=== PATIENT | male | born 1960 | race African-American/Black ===

== ENCOUNTER 2018-11-08 09:43 | Inpatient (IN) | payer MEDICAID | END 2018-11-13 12:20 | disposition home or self-care (01) | LOC: ER 09:43 → TELE 12:55 → TELE-EAST 21:07 | PROC: 0DJD8ZZ Inspection of Lower Intestinal Tract, Via Natural or Artificial Opening Endoscopic (ICD-10-PCS; principal; 2018-11-12 12:45) | DX: I21.A1 Myocardial infarction type 2 (principal); N18.6 End stage renal disease; I27.20 Pulmonary hypertension, unspecified; I50.43 Acute on chronic combined systolic (congestive) and diastolic (congestive) heart failure; I13.2 Hypertensive heart and chronic kidney disease with heart failure and with stage 5 chronic kidney disease, or end stage renal disease; M41.9 Scoliosis, unspecified; E83.39 Other disorders of phosphorus metabolism; D63.8 Anemia in other chronic diseases classified elsewhere; Z99.2 Dependence on renal dialysis; D63.1 Anemia in chronic kidney disease ==

== ENCOUNTER 2019-07-09 06:08 | Emergency (ER) | payer OTHER, MEDICAID ==
[~2019-07-09] VITALS: Ht 167.6 cm; Wt 85.7 kg
[~2019-07-09 06:08] MED LIST: CLON0.2T PO; HYDR-4833 PO; HYDR50TA15 PO; LISI40TA PO; NIFE60TA59 PO; SEVE800T8 PO; ZOLP10TA6 PO
[2019-07-09 06:49] LABS: Basophils # (auto) 0.1 uL; Eosinophils # (auto) 0.2 uL; Eosinophils % (auto) 2.3 % (0.0-7.0); Hematocrit 37.9 % (41.0-53.0); Lymphocytes # (auto) 1.2 uL; Mean Corpuscular Hemoglobin 31.8 pg (28.0-32.0); Mean Corpuscular Hgb Conc. 34.3 g/dL (32.0-36.0); Mean Corpuscular Volume 92.5 fL (80.0-100.0); Monocytes # (auto) 0.8 uL; Monocytes % (auto) 11.2 % (0.0-12.0); Neutrophils # (auto) 5.3 uL; Neutrophils % (auto) 69.5 % (37.0-80.0); Platelet Count (auto) 299 10^3/uL (140-450); Red Cell Distribution Width 15.7 % (11.8-14.3); White Blood Cell 7.6 10^3/uL (4.4-10.8)
[2019-07-09 07:04] LABS: Albumin 3.9 g/dL (3.4-5.0); Calcium 8.3 mg/dL (8.5-10.1); Potassium 4.6 mmol/L (3.5-5.1)
[2019-07-09 07:06] LABS: Bilirubin, Total 0.4 mg/dL (0.2-1.0); Total Protein 9.1 g/dL (6.4-8.2)
[2019-07-09 11:40] VITALS: BP 147/81
== END 2019-07-09 11:50 | disposition home or self-care (01) ==
LOC: ER 06:08
DX: S43.102A Unspecified dislocation of left acromioclavicular joint, initial encounter (principal); S70.02XA Contusion of left hip, initial encounter; M54.12 Radiculopathy, cervical region; I12.0 Hypertensive chronic kidney disease with stage 5 chronic kidney disease or end stage renal disease; N18.6 End stage renal disease; E78.5 Hyperlipidemia, unspecified; F12.10 Cannabis abuse, uncomplicated; Z99.2 Dependence on renal dialysis; W19.XXXA Unspecified fall, initial encounter; Y93.84 Activity, sleeping; Y92.89 Other specified places as the place of occurrence of the external cause; Y99.8 Other external cause status
CPT/HCPCS: 36415; 72125; 73030; 80053; 85025

== ENCOUNTER → 2020-08-18 | Emergency (ER) | payer MEDICAID ==
[~2020-08-18] VITALS: Ht 167.6 cm; Wt 90.7 kg
[~2020-08-18] MED LIST changes: +LACTULOSE 20Gm/30ML SOLN PO ONE; -LISI40TA PO; +LISI40TA11 PO; +MAGNESIUM CITRATE SOLUTION 300 ML BTL PO ONE; +NIFE1TAB30 PO; -NIFE60TA59 PO
[2020-08-18 12:15] VITALS: BP 156/95
== END | disposition home or self-care (01) ==
LOC: ER 11:41
DX: K59.00 Constipation, unspecified (principal); N28.1 Cyst of kidney, acquired; E11.22 Type 2 diabetes mellitus with diabetic chronic kidney disease; I12.0 Hypertensive chronic kidney disease with stage 5 chronic kidney disease or end stage renal disease; N18.6 End stage renal disease; E78.5 Hyperlipidemia, unspecified
CPT/HCPCS: 74176

== ENCOUNTER 2021-01-13 09:12 | Emergency (ER) | payer MEDICAID ==
[~2021-01-13 09:12] MED LIST changes: -LACTULOSE 20Gm/30ML SOLN PO ONE; -MAGNESIUM CITRATE SOLUTION 300 ML BTL PO ONE
[2021-01-13] MEDS ORDERED: MORPHINE SULFATE 4 MG/ML SYR/VIAL IV ONE (10:00)
[2021-01-13] MEDS ORDERED: SODIUM CHLORIDE 0.9% 1,000 ML IV ONE (10:00)
[2021-01-13] MEDS ORDERED: PROMETHAZINE HCL 25 MG/ML 1ML IV PRN (10:00)
[2021-01-13] MEDS ORDERED: SODIUM CHLORIDE 0.9% 500 ML IVB ONE (10:00)
[2021-01-13 10:06] LABS: Basophils # (auto) 0 10 ^3/uL (0-0.2); Basophils % (auto) 0.4 % (0.0-2.0); Eosinophils # (auto) 0.1 10 ^3/uL (0-0.8); Eosinophils % (auto) 0.5 % (0.0-7.0); Hemoglobin 15.8 g/dL (13.5-17.5); Lymphocytes % (auto) 9.1 % (10.0-50.0); Mean Corpuscular Hemoglobin 29.8 pg (28.0-32.0); Mean Corpuscular Hgb Conc. 34.3 g/dL (32.0-36.0); Mean Corpuscular Volume 86.7 fL (80.0-100.0); Monocytes # (auto) 0.8 10 ^3/uL (0-1.3); Monocytes % (auto) 7.3 % (0.0-12.0); Neutrophils # (auto) 8.7 10 ^3/uL (1.6-8.6); Neutrophils % (auto) 82.7 % (37.0-80.0); Nucleated Red Blood Cells % 0.1 %; Platelet Count (auto) 357 10^3/uL (140-450); Red Cell Distribution Width 15.8 % (11.8-14.3); White Blood Cell 10.5 10^3/uL (4.4-10.8)
[2021-01-13 10:23] LABS: Albumin 3.9 g/dL (3.4-5.0); Anion Gap 9 (5-15); Blood Urea Nitrogen 15 mg/dL (7-18); Carbon Dioxide 22 mmol/L (21-32); Chloride 104 mmol/L (98-107); Glucose 176 mg/dL (74-106); INR 1.1 (0.9-1.15); Lipase 76 U/L (73-393); Magnesium 1.9 mg/dL (1.6-2.6); Partial Thromboplastin Time 31.1 sec (23.0-31.2); Sodium 135 mmol/L (136-145)
[2021-01-13 10:29] LABS: Alanine Aminotransferase 19 U/L (16-61); Alkaline Phosphatase 98 U/L (45-117); Aspartate Aminotransferase 16 U/L (15-37); BUN/Creatinine Ratio 14.9; Bilirubin, Total 0.3 mg/dL (0.2-1.0); GFR African American 97 mL/min; GFR Non-African American 80 mL/min; Total Protein 8.8 g/dL (6.4-8.2)
[2021-01-13 10:54] LABS: Urine Amorphous Crystal FEW /hpf (None Seen); Urine Bacteria MANY /hpf (None Seen); Urine Blood Negative /uL (Negative); Urine Hyaline Cast FEW /lpf (0 - 2); Urine Mucus FEW (None Seen); Urine Specific Gravity 1.021 (1.001-1.035); Urine WBC 48 /hpf (0 - 3)
[2021-01-13] MEDS ORDERED: cefTRIAXone 1GM/50ML D5W 50 ML IV ONE (13:00)
[2021-01-13 14:58] VITALS: BP 132/86
== END 2021-01-13 15:01 | disposition home or self-care (01) ==
LOC: ER 09:12
DX: N39.0 Urinary tract infection, site not specified (principal); E11.65 Type 2 diabetes mellitus with hyperglycemia; E11.22 Type 2 diabetes mellitus with diabetic chronic kidney disease; I12.0 Hypertensive chronic kidney disease with stage 5 chronic kidney disease or end stage renal disease; N18.6 End stage renal disease; Z79.899 Other long term (current) drug therapy
CPT/HCPCS: 36415; 71046; 74177; 80053; 81001; 83690; 83735; 84443; 84484; 85025; 85610; 85730; 93005; 96361; 96365; 96375; 99285; J0696; J2270; J2550; J7030

== ENCOUNTER 2021-04-09 09:28 | Emergency (ER) | payer MEDICAID ==
[~2021-04-09] VITALS: Ht 167.6 cm; Wt 81.6 kg
[2021-04-09 10:24] LABS: Urine Bacteria MANY /hpf (None Seen); Urine Blood 1+ /uL (Negative); Urine Mucus FEW (None Seen); Urine Specific Gravity 1.018 (1.001-1.035); Urine WBC 440 /hpf (0 - 3); Urine WBC Clumps PRESENT /hpf (None Seen)
[2021-04-09 11:15] LABS: Eosinophils # (auto) 0 10 ^3/uL (0-0.8); Eosinophils % (auto) 0.4 % (0.0-7.0); Mean Corpuscular Hgb Conc. 32.5 g/dL (32.0-36.0); Monocytes # (auto) 0.9 10 ^3/uL (0-1.3)
[2021-04-09 11:17] LABS: Basophils # (auto) 0.1 10 ^3/uL (0-0.2); Basophils % (auto) 0.5 % (0.0-2.0); Hematocrit 38.1 % (41.0-53.0); Hemoglobin 12.4 g/dL (13.5-17.5); Lymphocytes % (auto) 8.8 % (10.0-50.0); Mean Corpuscular Volume 77.1 fL (80.0-100.0); Monocytes % (auto) 8.1 % (0.0-12.0); Neutrophils # (auto) 9.3 10 ^3/uL (1.6-8.6); Neutrophils % (auto) 82.2 % (37.0-80.0); Red Blood Cells 4.95 10^6/uL (4.5-5.90); Red Cell Distribution Width 17.1 % (11.8-14.3); White Blood Cell 11.3 10^3/uL (4.4-10.8)
[2021-04-09] MEDS ORDERED: cefTRIAXone W LIDOCAINE 1 GM IM IM ONE (11:30)
[2021-04-09 11:37] LABS: Albumin 3.2 g/dL (3.4-5.0); Anion Gap 5 (5-15); Blood Urea Nitrogen 14 mg/dL (7-18); Calcium 9.9 mg/dL (8.5-10.1); Carbon Dioxide 24 mmol/L (21-32); Chloride 104 mmol/L (98-107); Glucose 229 mg/dL (74-106); Lipase 115 U/L (73-393); Potassium 4.4 mmol/L (3.5-5.1); Sodium 133 mmol/L (136-145)
[2021-04-09 11:42] LABS: Alanine Aminotransferase 15 U/L (16-61); Alkaline Phosphatase 96 U/L (45-117); Aspartate Aminotransferase 15 U/L (15-37); BUN/Creatinine Ratio 11.8; Bilirubin, Total 0.5 mg/dL (0.2-1.0); GFR African American 80 mL/min; GFR Non-African American 67 mL/min; Total Protein 8.8 g/dL (6.4-8.2)
[2021-04-09 11:50] VITALS: BP 133/82
== END 2021-04-09 11:54 | disposition home or self-care (01) ==
LOC: ER 09:28
DX: N39.0 Urinary tract infection, site not specified (principal); F12.10 Cannabis abuse, uncomplicated; I12.0 Hypertensive chronic kidney disease with stage 5 chronic kidney disease or end stage renal disease; E11.22 Type 2 diabetes mellitus with diabetic chronic kidney disease; N18.6 End stage renal disease; Z79.899 Other long term (current) drug therapy; Z94.0 Kidney transplant status
CPT/HCPCS: 36415; 74176; 80053; 81001; 83690; 84484; 85025; J0696

== ENCOUNTER 2021-04-12 00:32 | Inpatient (IN) | payer MEDICAID ==
[~2021-04-12] VITALS: Ht 165.1 cm; Wt 79.1 kg
[2021-04-12 00:53] LABS: Basophils # (auto) 0.1 10 ^3/uL (0-0.2); Eosinophils # (auto) 0.1 10 ^3/uL (0-0.8); Hemoglobin 12.5 g/dL (13.5-17.5); Monocytes # (auto) 1.2 10 ^3/uL (0-1.3); Neutrophils # (auto) 8.4 10 ^3/uL (1.6-8.6)
[2021-04-12 00:55] LABS: Basophils % (auto) 0.8 % (0.0-2.0); Lymphocytes # (auto) 1.9 10 ^3/uL (0.4-5.4); Mean Corpuscular Hemoglobin 25.9 pg (28.0-32.0); Mean Corpuscular Hgb Conc. 33.7 g/dL (32.0-36.0); Mean Corpuscular Volume 76.7 fL (80.0-100.0); Monocytes % (auto) 10.6 % (0.0-12.0); Neutrophils % (auto) 71.6 % (37.0-80.0); Red Blood Cells 4.83 10^6/uL (4.5-5.90); Red Cell Distribution Width 16.5 % (11.8-14.3); White Blood Cell 11.7 10^3/uL (4.4-10.8)
[2021-04-12 01:23] LABS: Albumin 3.3 g/dL (3.4-5.0); Calcium 9.9 mg/dL (8.5-10.1); Potassium 4.3 mmol/L (3.5-5.1)
[2021-04-12 01:26] LABS: Bilirubin, Total 0.3 mg/dL (0.2-1.0); Total Protein 8.9 g/dL (6.4-8.2)
[2021-04-12 04:40] LABS: Urine Amorphous Crystal FEW /hpf (None Seen); Urine Bacteria FEW /hpf (None Seen); Urine Blood Negative /uL (Negative); Urine Specific Gravity 1.016 (1.001-1.035); Urine WBC 6 /hpf (0 - 3)
[2021-04-12] MEDS ORDERED: cefTRIAXone 1GM/50ML D5W 50 ML IV ONE (07:00)
[2021-04-12] MEDS ORDERED: MORPHINE SULFATE INJECTION 2 MG/ML SYRG IV PRN (10:45)
[2021-04-12] MEDS ORDERED: NITROGLYCERIN 0.4 MG SL TAB SL PRN (10:45)
[2021-04-12] MEDS ORDERED: GOLYTELY 4L KIT PO ONE (11:00)
[2021-04-12] MEDS ORDERED: HYDROcodone-ACET 5/325MG TAB PO PRN (13:45)
[2021-04-12] MEDS ORDERED: hydrALAZINE HCL 25 MG TAB PO ONE (14:45)
[2021-04-12] MEDS ORDERED: LISINOPRIL 20 MG TAB PO ONE (14:45)
[2021-04-12] MEDS: MORPHINE SULFATE 4 MG/ML SYR/VIAL IV PRN ×2 (15:39→19:45)
[2021-04-12] MEDS: SEVELAMER 800 MG TAB PO SCH (18:00)
[2021-04-12 18:45] VITALS: BP 142/93
[2021-04-12 19:45] VITALS: BP 142/93
[2021-04-12 22:00] VITALS: BP 169/99
[2021-04-12] MEDS: ZOLPIDEM TARTRATE 5 MG TAB PO SCH (22:00)
[2021-04-12] MEDS: NIFEdipine ER 30 MG TAB PO SCH (22:09)
[2021-04-12] MEDS: hydrALAZINE HCL 25 MG TAB PO SCH (22:09)
[2021-04-13 05:00] VITALS: BP 158/85
[2021-04-13] MEDS: hydrALAZINE HCL 25 MG TAB PO SCH ×3 (05:29→22:00)
[2021-04-13] MEDS: MORPHINE SULFATE 4 MG/ML SYR/VIAL IV PRN ×4 (05:36→22:55)
[2021-04-13 06:34] LABS: Eosinophils # (auto) 0.1 10 ^3/uL (0-0.8); Lymphocytes # (auto) 1.1 10 ^3/uL (0.4-5.4); Mean Corpuscular Hgb Conc. 33.2 g/dL (32.0-36.0); Mean Corpuscular Volume 75.8 fL (80.0-100.0); Monocytes # (auto) 1.1 10 ^3/uL (0-1.3); Red Cell Distribution Width 16.8 % (11.8-14.3); White Blood Cell 11.2 10^3/uL (4.4-10.8)
[2021-04-13 06:36] LABS: Basophils # (auto) 0 10 ^3/uL (0-0.2); Basophils % (auto) 0.4 % (0.0-2.0); Lymphocytes % (auto) 9.6 % (10.0-50.0); Mean Corpuscular Hemoglobin 25.2 pg (28.0-32.0); Monocytes % (auto) 10.1 % (0.0-12.0); Neutrophils # (auto) 8.8 10 ^3/uL (1.6-8.6); Neutrophils % (auto) 78.9 % (37.0-80.0); Nucleated Red Blood Cells % 0.1 %; Red Blood Cells 4.75 10^6/uL (4.5-5.90)
[2021-04-13 06:45] LABS: Albumin 3.1 g/dL (3.4-5.0); Calcium 9.8 mg/dL (8.5-10.1); Potassium 4.3 mmol/L (3.5-5.1)
[2021-04-13 06:50] LABS: BUN/Creatinine Ratio 14.8; Bilirubin, Total 0.5 mg/dL (0.2-1.0); Total Protein 8.2 g/dL (6.4-8.2)
[2021-04-13] MEDS ORDERED: MYCO360T PO (06:50)
[2021-04-13] MEDS ORDERED: NIFE1TAB31 PO (07:05)
[2021-04-13] MEDS ORDERED: FAMO-12 PO (07:05)
[2021-04-13] MEDS ORDERED: MULTTAB75 PO (07:05)
[2021-04-13] MEDS ORDERED: GLIP5TAB12 PO (07:05)
[2021-04-13] MEDS ORDERED: MAGN400T40 PO (07:05)
[2021-04-13] MEDS ORDERED: POT1TAB PO (07:05)
[2021-04-13] MEDS ORDERED: PERCOT PO (07:05)
[2021-04-13] MEDS ORDERED: PRED1PAK8 PO (07:05)
[2021-04-13] MEDS: SEVELAMER 800 MG TAB PO SCH ×2 (08:00→18:00)
[2021-04-13 09:00] VITALS: BP 122/82
[2021-04-13] MEDS: LISINOPRIL 20 MG TAB PO SCH (10:00)
[2021-04-13 13:00] VITALS: BP 111/69
[2021-04-13] MEDS ORDERED: SODIUM CHLORIDE LOCK 10 ML ONE (14:43)
[2021-04-13] MEDS ORDERED: diphenhdrAMINE HCL 50 MG/1 ML VL ONE (14:44)
[2021-04-13] MEDS: fentaNYL CITRATE 100 MCG/2 ML VL ONE ×3 (15:02→15:09)
[2021-04-13] MEDS: MIDAZOLAM HCL 5 MG/ML-1ML VIAL ONE ×3 (15:02→15:09)
[2021-04-13 16:00] VITALS: BP 127/68
[2021-04-13] MEDS ORDERED: OXYCODONE W/ ACETAMINOPHEN 5/325MG TABLET PO SCH (17:30)
[2021-04-13] MEDS ORDERED: TACR5CAP3 PO (18:44)
[2021-04-13] MEDS: MYCOPHENOLATE SODIUM 360 MG PO SCH (21:29)
[2021-04-13] MEDS: MAGNESIUM OXIDE 400 MG TAB PO SCH (21:30)
[2021-04-13] MEDS: predniSONE 5 MG TAB PO SCH (21:30)
[2021-04-13] MEDS: NEUTRA-PHOS TABLET PO SCH (21:31)
[2021-04-13 22:00] VITALS: BP 109/87
[2021-04-13] MEDS: ZOLPIDEM TARTRATE 5 MG TAB PO SCH (22:00)
[2021-04-13] MEDS: NIFEdipine ER 30 MG TAB PO SCH (22:00)
[2021-04-13] MEDS ORDERED: TACROLIMUS 1 MG CAP PO SCH (22:00)
[2021-04-13] MEDS: cloNIDine HCL 0.1 MG TAB PO SCH (22:00)
[2021-04-13] MEDS ORDERED: NIFEdipine ER 30 MG TAB PO SCH (22:00)
[2021-04-14 05:00] VITALS: BP 105/67
[2021-04-14] MEDS: hydrALAZINE HCL 25 MG TAB PO SCH ×3 (05:47→21:33)
[2021-04-14] MEDS: cloNIDine HCL 0.1 MG TAB PO SCH ×3 (05:47→21:33)
[2021-04-14] MEDS: MORPHINE SULFATE 4 MG/ML SYR/VIAL IV PRN ×3 (06:10→23:30)
[2021-04-14] MEDS: MYCOPHENOLATE SODIUM 360 MG PO SCH ×2 (06:13→17:23)
[2021-04-14] MEDS ORDERED: TACROLIMUS 5MG CAPSULE PO SCH (07:00)
[2021-04-14 08:00] VITALS: BP 115/82
[2021-04-14] MEDS ORDERED: cefTRIAXone 1GM/50ML D5W 50 ML IV SCH (09:00)
[2021-04-14] MEDS: predniSONE 5 MG TAB PO SCH ×2 (10:55→21:32)
[2021-04-14] MEDS: SEVELAMER 800 MG TAB PO SCH ×2 (10:55→18:36)
[2021-04-14] MEDS: FAMOTIDINE 20 MG TAB PO SCH (10:56)
[2021-04-14] MEDS: glipiZIDE 5 MG TAB PO SCH (10:56)
[2021-04-14] MEDS: NEUTRA-PHOS TABLET PO SCH ×2 (10:56→21:32)
[2021-04-14] MEDS: MULTIPLE VITAMINS W/ MINERALS TAB PO SCH (10:56)
[2021-04-14] MEDS: MAGNESIUM OXIDE 400 MG TAB PO SCH ×2 (10:56→21:32)
[2021-04-14] MEDS: LISINOPRIL 20 MG TAB PO SCH (10:57)
[2021-04-14 12:00] VITALS: BP 106/67
[2021-04-14 16:00] VITALS: BP 98/50
[2021-04-14] MEDS ORDERED: PATIENTS OWN MEDICATION PO SCH (17:00)
[2021-04-14] MEDS ORDERED: MYCOPHENOLATE SODIUM 360 MG PO SCH (17:00)
[2021-04-14] MEDS: TACROLIMUS 5MG CAPSULE PO SCH (17:23)
[2021-04-14] MEDS: TACROLIMUS 1 MG CAP PO SCH (17:24)
[2021-04-14] MEDS: AMPICILLIN INJ 1 GM in SODIUM CHL 0.9% 50 ML IV SCH ×2 (18:36→23:29)
[2021-04-14] MEDS: NIFEdipine ER 30 MG TAB PO SCH (21:33)
[2021-04-14 22:00] VITALS: BP 104/60
[2021-04-14] MEDS ORDERED: NITROFURANTOIN 100 mg CAP PO SCH (22:00)
[2021-04-14] MEDS: ZOLPIDEM TARTRATE 5 MG TAB PO SCH (22:21)
[2021-04-15 05:00] VITALS: BP 98/69
[2021-04-15] MEDS: hydrALAZINE HCL 25 MG TAB PO SCH ×3 (05:50→22:00)
[2021-04-15] MEDS: cloNIDine HCL 0.1 MG TAB PO SCH ×3 (05:51→22:00)
[2021-04-15] MEDS: AMPICILLIN INJ 1 GM in SODIUM CHL 0.9% 50 ML IV SCH ×3 (05:51→17:28)
[2021-04-15] MEDS: MYCOPHENOLATE SODIUM 360 MG PO SCH ×2 (06:28→17:30)
[2021-04-15] MEDS: TACROLIMUS 5MG CAPSULE PO SCH ×2 (06:28→17:31)
[2021-04-15] MEDS: TACROLIMUS 1 MG CAP PO SCH ×2 (06:28→17:29)
[2021-04-15 09:00] VITALS: BP 106/69
[2021-04-15] MEDS: MORPHINE SULFATE 4 MG/ML SYR/VIAL IV PRN ×3 (09:58→22:29)
[2021-04-15] MEDS: MAGNESIUM OXIDE 400 MG TAB PO SCH ×2 (09:59→21:35)
[2021-04-15] MEDS: predniSONE 5 MG TAB PO SCH ×2 (09:59→21:35)
[2021-04-15] MEDS: FAMOTIDINE 20 MG TAB PO SCH (09:59)
[2021-04-15] MEDS: SEVELAMER 800 MG TAB PO SCH ×2 (09:59→17:30)
[2021-04-15] MEDS: MULTIPLE VITAMINS W/ MINERALS TAB PO SCH (09:59)
[2021-04-15] MEDS: LISINOPRIL 20 MG TAB PO SCH (10:00)
[2021-04-15] MEDS: NEUTRA-PHOS TABLET PO SCH ×2 (11:03→21:36)
[2021-04-15] MEDS: glipiZIDE 5 MG TAB PO SCH (11:04)
[2021-04-15 15:56] VITALS: BP 120/85
[2021-04-15 17:00] VITALS: BP 120/68
[2021-04-15] MEDS: ZOLPIDEM TARTRATE 5 MG TAB PO SCH (21:35)
[2021-04-15] MEDS: DOCUSATE SOD 100 MG CAP PO SCH (21:35)
[2021-04-15] MEDS: NIFEdipine ER 30 MG TAB PO SCH (21:36)
[2021-04-15 21:57] VITALS: BP 140/101
[2021-04-16] MEDS: AMPICILLIN INJ 1 GM in SODIUM CHL 0.9% 50 ML IV SCH ×4 (01:21→18:29)
[2021-04-16] MEDS: MORPHINE SULFATE 4 MG/ML SYR/VIAL IV PRN ×3 (02:51→17:09)
[2021-04-16 05:30] VITALS: BP 109/69
[2021-04-16] MEDS: cloNIDine HCL 0.1 MG TAB PO SCH ×3 (06:00→22:00)
[2021-04-16] MEDS: hydrALAZINE HCL 25 MG TAB PO SCH ×3 (06:00→22:00)
[2021-04-16 06:19] LABS: Basophils # (auto) 0 10 ^3/uL (0-0.2); Basophils % (auto) 0.4 % (0.0-2.0); Eosinophils # (auto) 0 10 ^3/uL (0-0.8); Lymphocytes # (auto) 1.1 10 ^3/uL (0.4-5.4); Neutrophils % (auto) 82.5 % (37.0-80.0)
[2021-04-16 06:25] LABS: Eosinophils % (auto) 0.2 % (0.0-7.0); Hematocrit 35.7 % (41.0-53.0); Hemoglobin 12.4 g/dL (13.5-17.5); Lymphocytes % (auto) 9.4 % (10.0-50.0); Mean Corpuscular Hgb Conc. 34.6 g/dL (32.0-36.0); Mean Corpuscular Volume 75.2 fL (80.0-100.0); Monocytes # (auto) 0.9 10 ^3/uL (0-1.3); Monocytes % (auto) 7.5 % (0.0-12.0); Neutrophils # (auto) 9.4 10 ^3/uL (1.6-8.6); Nucleated Red Blood Cells % 0.1 %; Red Blood Cells 4.75 10^6/uL (4.5-5.90); Red Cell Distribution Width 17.1 % (11.8-14.3); White Blood Cell 11.4 10^3/uL (4.4-10.8)
[2021-04-16 06:39] LABS: Potassium 4.5 mmol/L (3.5-5.1)
[2021-04-16] MEDS: MYCOPHENOLATE SODIUM 360 MG PO SCH ×2 (06:48→18:22)
[2021-04-16] MEDS: TACROLIMUS 5MG CAPSULE PO SCH ×2 (06:48→18:21)
[2021-04-16] MEDS: TACROLIMUS 1 MG CAP PO SCH ×2 (06:48→18:24)
[2021-04-16 07:02] LABS: BUN/Creatinine Ratio 16.7; Bilirubin, Total 0.5 mg/dL (0.2-1.0); Calcium 10.2 mg/dL (8.5-10.1)
[2021-04-16 09:00] VITALS: BP 130/82
[2021-04-16] MEDS: glipiZIDE 5 MG TAB PO SCH (10:00)
[2021-04-16] MEDS: SEVELAMER 800 MG TAB PO SCH ×2 (10:44→18:24)
[2021-04-16] MEDS: predniSONE 5 MG TAB PO SCH ×2 (10:44→22:44)
[2021-04-16] MEDS: DOCUSATE SOD 100 MG CAP PO SCH ×2 (10:45→22:45)
[2021-04-16] MEDS: NEUTRA-PHOS TABLET PO SCH ×2 (10:45→22:45)
[2021-04-16] MEDS: MULTIPLE VITAMINS W/ MINERALS TAB PO SCH (10:45)
[2021-04-16] MEDS: FAMOTIDINE 20 MG TAB PO SCH (10:45)
[2021-04-16] MEDS: MAGNESIUM OXIDE 400 MG TAB PO SCH ×2 (10:45→22:45)
[2021-04-16] MEDS: LISINOPRIL 20 MG TAB PO SCH (10:46)
[2021-04-16 13:00] VITALS: BP 129/79
[2021-04-16] MEDS: HYDROcodone-ACET 10/325MG TAB PO PRN ×2 (14:28→20:24)
[2021-04-16 17:00] VITALS: BP 116/74
[2021-04-16 20:00] VITALS: BP 131/83
[2021-04-16] MEDS: ZOLPIDEM TARTRATE 5 MG TAB PO SCH (22:45)
[2021-04-16] MEDS: NIFEdipine ER 30 MG TAB PO SCH (22:55)
[2021-04-17] MEDS: ZOLPIDEM TARTRATE 5 MG TAB PO SCH ×2 (00:19→21:44)
[2021-04-17] MEDS: AMPICILLIN INJ 1 GM in SODIUM CHL 0.9% 50 ML IV SCH ×4 (00:19→19:39)
[2021-04-17] MEDS: MORPHINE SULFATE 4 MG/ML SYR/VIAL IV PRN ×5 (00:26→18:24)
[2021-04-17 05:00] VITALS: BP 104/77
[2021-04-17] MEDS: hydrALAZINE HCL 25 MG TAB PO SCH ×3 (06:00→21:45)
[2021-04-17] MEDS: cloNIDine HCL 0.1 MG TAB PO SCH ×3 (06:00→21:46)
[2021-04-17] MEDS: MYCOPHENOLATE SODIUM 360 MG PO SCH ×2 (06:21→17:02)
[2021-04-17] MEDS: TACROLIMUS 5MG CAPSULE PO SCH ×2 (06:21→17:02)
[2021-04-17] MEDS: TACROLIMUS 1 MG CAP PO SCH ×3 (06:22→18:57)
[2021-04-17] MEDS: glipiZIDE 5 MG TAB PO SCH (07:59)
[2021-04-17] MEDS: MULTIPLE VITAMINS W/ MINERALS TAB PO SCH (07:59)
[2021-04-17] MEDS: SEVELAMER 800 MG TAB PO SCH ×2 (08:00→17:02)
[2021-04-17] MEDS: DOCUSATE SOD 100 MG CAP PO SCH ×2 (08:00→21:45)
[2021-04-17] MEDS: FAMOTIDINE 20 MG TAB PO SCH (08:00)
[2021-04-17] MEDS: LISINOPRIL 20 MG TAB PO SCH (08:03)
[2021-04-17 09:00] VITALS: BP 108/71
[2021-04-17] MEDS: predniSONE 5 MG TAB PO SCH ×2 (10:37→21:44)
[2021-04-17] MEDS: MAGNESIUM OXIDE 400 MG TAB PO SCH ×2 (10:37→21:47)
[2021-04-17] MEDS: NEUTRA-PHOS TABLET PO SCH ×2 (10:38→22:00)
[2021-04-17 13:00] VITALS: BP 130/84
[2021-04-17 16:07] VITALS: BP 104/77
[2021-04-17 17:00] VITALS: BP 113/76
[2021-04-17] MEDS: HYDROcodone-ACET 10/325MG TAB PO PRN (21:23)
[2021-04-17] MEDS: NIFEdipine ER 30 MG TAB PO SCH (21:47)
[2021-04-17 22:00] VITALS: BP 116/81
[2021-04-18] MEDS: AMPICILLIN INJ 1 GM in SODIUM CHL 0.9% 50 ML IV SCH ×4 (00:15→18:00)
[2021-04-18] MEDS: MORPHINE SULFATE 4 MG/ML SYR/VIAL IV PRN ×3 (00:27→11:30)
[2021-04-18 05:06] VITALS: BP 107/68
[2021-04-18] MEDS: hydrALAZINE HCL 25 MG TAB PO SCH ×2 (05:40→14:42)
[2021-04-18] MEDS: cloNIDine HCL 0.1 MG TAB PO SCH ×2 (05:40→14:41)
[2021-04-18] MEDS: TACROLIMUS 1 MG CAP PO SCH ×2 (05:41→17:12)
[2021-04-18] MEDS: MYCOPHENOLATE SODIUM 360 MG PO SCH ×2 (05:41→17:12)
[2021-04-18] MEDS: SEVELAMER 800 MG TAB PO SCH ×2 (05:41→18:00)
[2021-04-18] MEDS: TACROLIMUS 5MG CAPSULE PO SCH ×2 (05:41→17:12)
[2021-04-18 09:00] VITALS: BP 112/77
[2021-04-18] MEDS: predniSONE 5 MG TAB PO SCH (09:06)
[2021-04-18] MEDS: DOCUSATE SOD 100 MG CAP PO SCH (09:06)
[2021-04-18] MEDS: MAGNESIUM OXIDE 400 MG TAB PO SCH (09:06)
[2021-04-18] MEDS: MULTIPLE VITAMINS W/ MINERALS TAB PO SCH (09:07)
[2021-04-18] MEDS: FAMOTIDINE 20 MG TAB PO SCH (09:07)
[2021-04-18] MEDS: LISINOPRIL 20 MG TAB PO SCH (09:08)
[2021-04-18] MEDS: glipiZIDE 5 MG TAB PO SCH (09:25)
[2021-04-18] MEDS: NEUTRA-PHOS TABLET PO SCH (10:00)
[2021-04-18] MEDS: HYDROcodone-ACET 10/325MG TAB PO PRN (12:43)
[2021-04-18 13:00] VITALS: BP 123/78
[2021-04-18] MEDS ORDERED: OXYCODONE W/ ACETAMINOPHEN 5/325MG TABLET PO PRN (14:45)
[2021-04-18 17:00] VITALS: BP 111/72
== END 2021-04-18 20:15 | disposition home or self-care (01) | DRG 240 ==
LOC: ER 00:32 → TELE 10:31 → TELE-CENTR 19:00
PROVIDERS: ADMIT Nurse Practitioner; ATTEND Nurse Practitioner
PROC: 0DBE8ZX Excision of Large Intestine, Via Natural or Artificial Opening Endoscopic, Diagnostic (ICD-10-PCS; principal; 2021-04-13 14:57)
DX: C18.7 Malignant neoplasm of sigmoid colon (principal); N17.0 Acute kidney failure with tubular necrosis; E44.1 Mild protein-calorie malnutrition; D63.1 Anemia in chronic kidney disease; N18.9 Chronic kidney disease, unspecified; E11.22 Type 2 diabetes mellitus with diabetic chronic kidney disease; Z20.822 Contact with and (suspected) exposure to COVID-19; E78.5 Hyperlipidemia, unspecified; F12.90 Cannabis use, unspecified, uncomplicated; Z80.0 Family history of malignant neoplasm of digestive organs; Z94.0 Kidney transplant status; Z68.29 Body mass index [BMI] 29.0-29.9, adult; I12.9 Hypertensive chronic kidney disease with stage 1 through stage 4 chronic kidney disease, or unspecified chronic kidney disease
CPT/HCPCS: 36415; 45380; 74176; 76870; 80053; 81001; 82962; 83036; 83735; 84153; 85025; 87086; 87088; 87186; 87426; 96365; G0378; J0696; J2250; J7507